=== PATIENT | male | born 1945 | race Caucasian/White ===

== ENCOUNTER 2020-12-02 16:25 | Inpatient (IN) | payer MEDICARE, OTHER ==
[~2020-12-02] VITALS: Ht 170.2 cm; Wt 72.6 kg
--- NOTE | 2020-12-02 16:25 | NUR ---
Pt is waiting in the hallway in [facility] as there are no ER beds available at this time.
[2020-12-02] MEDS ORDERED: INSULIN (16:53)
[2020-12-02] MEDS ORDERED: HEPARIN (16:53)
[2020-12-02] MEDS ORDERED: ALBUTEROL SULFATE 2.5 MG/3 ML NEBU NEB ONE (17:15)
[2020-12-02] MEDS ORDERED: ALBUTEROL SULFATE 2.5 MG/ 0.5 ML NEBU ONE (17:27)
[2020-12-02 17:41] LABS: HEMATOCRIT 27.1 % (36.7-47.1); MEAN CORPUSCULAR HEMOGLOBIN 29.9 uug (23.8-33.4); MEAN CORPUSCULAR VOLUME 93.4 fL (73.0-96.2); PLATELET COUNT (AUTO) 101 K/uL (152-348)
[2020-12-02 17:49] LABS: CARBON DIOXIDE 30 mmol/L (21-32); CHLORIDE 98 mmol/L (98-107); CREATININE 4.3 mg/dL (0.6-1.3); GLUCOSE 179 mg/dL (74-106); UREA NITROGEN, BLOOD 38 mg/dL (7-18)
[2020-12-02] MEDS ORDERED: NITROGLYCERIN 0.4 MG/TAB BOTTLE SL ONE ×2 (18:00→18:14)
[2020-12-02] MEDS ORDERED: FUROSEMIDE 40 MG/4 ML VIAL IV ONE (18:00)
[2020-12-02 18:02] LABS: ALANINE AMINOTRANSFERASE 21 U/L (16-63); ALKALINE PHOSPHATASE 141 U/L (50-136); ASPARTATE AMINOTRANSFERASE 21 U/L (15-37); BILIRUBIN,DIRECT 0.2 mg/dL (0.0-0.2); BILIRUBIN,TOTAL 0.6 mg/dL (0.2-1.0); TOTAL PROTEIN, SERUM 7.1 g/dL (6.4-8.2)
[2020-12-02] MEDS ORDERED: FUROSEMIDE 40 MG/4 ML VIAL ONE (18:14)
--- NOTE | 2020-12-02 18:43 | NUR ---
talked to pt's daughters Leisa and over the phone multiple times with the following discussion: pt is not a candidate for any surgery per pt's doctors. family is working for palliative care. pt is DNR. its ok to admit the pt here at [place]. , daughter [phone] fartun Díaz, [phone] Efrain, son in law, arson and bomb investigator: Dr. Zeng [phone] PMD: Dr. Anthony [phone]. Addendum: 12/02/20 at 4 by JELANI pt with following medical conditions: stage 4 cardiomyopathy, heart failure, renal failure, aortic malfunction, s/p aortic valve replacement 3 weeks ago at [facility], ever pt on dobutamin pump to support the bp x 2 weeks. pt recieves dialysis on ,sat.
[2020-12-02] MEDS ORDERED: INSULIN REGULAR, HUMAN 300 UNIT/3 ML VIAL IV ONE (19:00)
[2020-12-02] MEDS ORDERED: SODIUM POLYSTYRENE SULFONATE 15 G/60 ML LIQUID UDC PO ONE (19:00)
[2020-12-02] MEDS ORDERED: DEXTROSE 50% 50 ML DISP.SYRIN IV ONE (19:00)
[2020-12-02] MEDS ORDERED: DEXTROSE 50% 50 ML DISP.SYRIN ONE (19:12)
[2020-12-02] MEDS ORDERED: INSULIN REGULAR, HUMAN 300 UNIT/3 ML VIAL ONE (19:12)
[2020-12-02] MEDS ORDERED: DEXTROSE 50% 50 ML DISP.SYRIN IV PRN (19:15)
[2020-12-02] MEDS ORDERED: Z GUARD REMEDY PASTE 57 GM TUBE TOP PRN (19:15)
[2020-12-02] MEDS ORDERED: ONDANSETRON 4 MG/2 ML VIAL IV PRN (19:15)
[2020-12-02] MEDS ORDERED: MAGNESIUM HYDROXIDE 30 ML LIQUID UDC PO PRN (19:15)
[2020-12-02] MEDS ORDERED: ACETAMINOPHEN 325 MG TABLET PO PRN (19:15)
[2020-12-02] MEDS: BLOOD SUGAR DIAGNOSTIC 1 EACH STRIP VI SCH (21:00)
--- NOTE | 2020-12-02 23:50 | NUR ---
PATIENT TAKEN BY FROY COTE TO 3RD FLOOR ROOM 315.
[2020-12-03] VITALS (55 sets, daily range): BP systolic 116–159; BP diastolic 35–92
--- NOTE | 2020-12-03 00:30 | NUR ---
SBAR REPORT FROM [facility] NURSE . DX: CHF EXACERBATION,ACUTE RESPIRATORY FAILURE .PATIENT AAOX3,MAEX4 SLOW AND VERY WEAK. SOB NOTED UPON EXERTION ON NRM 15 LITERS ,SATURATION 100% AND RR 20. AT REST HIS FINE RR 18 TO 20 SATURATION 100%.PATIENT ORIENTED TO ROOM AND EQUIPMENT AND CALL LIGHT GIVEN ADVISED TO CALL FOR ASSISTANCE AND HELP.
--- NOTE | 2020-12-03 00:45 | NUR ---
ADMISSION ASSESSMENT DONE AND ASKED PATIENT ABOUT HIS CODE STATUS HE SAID HE WANTS EVERY DONE .HE SAID HE USED TO SMOKED BUT NOT ANY MORE .
--- NOTE | 2020-12-03 00:50 | NUR ---
CALLED [facility] SERV[facility] AND SPOKED WITH SERVICE AND CASING SOAKER IS JOSELINE .
--- NOTE | 2020-12-03 01:00 | NUR ---
SPOKED WITH EDUARDO TREVIZO AND INFORMED PATIENT IS NOW IN CCU INITIALLY ADMITTED FOR TELEMETRY C/O PATIENT WITH SELF OWN DEVICE PUMP WITH MEDICATION INFUSION (DOBUTAMINE DRIP) THE TELEMETRY FLOOR DONT HANDLE THIS KIND OF PATIENT .
--- NOTE | 2020-12-03 02:00 | NUR ---
PATIENT CALLED AND COMPLAINING OF SOB ,PATIENT VERY ANXIOUS AND SAYING I CANNOT BREATH , SATURATION 100% AND RR 18 TO 20.ADVISED PATIENT TO CALM DONE AND INFORMED HIM HIS SATURATION IS 100% ON NRM AT 15 LITERS . CALLED RESPIRATORY THERAPIST AND AUSCULTATED LUNGS ,LEFT SIDE DIMINISHED AND + FOR WHEEZING .REPOSITION PATIENT AND HOB UP .
--- NOTE | 2020-12-03 02:00 | NUR ---
PATIENT WITH RIGHT AV FISTULA -SHUNT FOR HD GOOD THRILL VIA PALPATION AND AND GOOD BRUIT VIA AUSCULTATION .RIGHT HAND AND FOREARM SWOLLEN +2 TO +3 EDEMA ,RIGHT UPPER CHEST POST OP SITE ALSO SWOLLEN .
--- NOTE | 2020-12-03 03:30 | NUR ---
PATIENT WITH OWN MACHINE (PUMP ) WITH DOBUTAMINE DRIP VIA THE LEFT UPPER ARM MIDLINE INFUSING AND PATENT .
--- NOTE | 2020-12-03 04:43 | NUR ---
DOCTOR MUSA CALLED ASKING IF THE PATIENT ALREADY HAD HIS HEMODIALYSIS .HE SAID HE SPOKED TO ER NURSE YESTERDAY TO CALL DIALYSIS NURSE AND HAVE THEM DIALYSIS PATIENT RIGHT AWAY ,INFORMED MD THAT THE ORDER IS ROUTINE AND ER NURSE DID NOT ENDORSED THAT HD NEEDED TO BE DONE RIGHT AWAY , PER NURSING CERTIFIED LOW VISION THERAPIST SHE ALREADY CALLED HEMODIALYSIS COMPANY AND INFORMED THEM , THEY ARE COMING THIS MORNING . PER MD TO CALL HEMODIALYSIS NOW AND HAVE TIME DIALYSIS THIS PATIENT.
--- NOTE | 2020-12-03 05:05 | NUR ---
PER MIDDLE STITCHER DIALYSIS ARE COMING AND AUTO DAMAGE APPRAISER ALSO COMING SINCE PATIENT IN BED 4 AND ITS FAR FORM THE SINK .
[2020-12-03] MEDS ORDERED: LORAZEPAM 1 MG TABLET PO ONE (05:30)
--- NOTE | 2020-12-03 05:30 | NUR ---
CALLED MEDICAL OFFICE SUPERVISOR JOSELINE C/O PATIENT REQUEST FOR ATIVAN , PER PATIENT IT HELP HIM SLEEP AND CALM HIM DOWN .
--- NOTE | 2020-12-03 05:43 | NUR ---
GIVEN ATIVAN DEEPTI PATIENT ABLE TO SWALLOW .TOLERATED PILL WITH WATER .WARM BLANKET PROVIDED AND EXTRA BLANKET .
--- NOTE | 2020-12-03 07:00 | NUR ---
patient signed consent for hemodialysis ,acute dialysis nurse at bedside .
[2020-12-03] MEDS: PANTOPRAZOLE SODIUM 40 MG TABLET.DR PO SCH (07:23)
--- NOTE | 2020-12-03 07:23 | NUR ---
speech therapist at bedside .patient passed swallow evaluation and as per speech therapist she will modify the diet .
[2020-12-03] MEDS: BLOOD SUGAR DIAGNOSTIC 1 EACH STRIP VI SCH ×4 (08:18→22:35)
[2020-12-03 08:25] LABS: HEMATOCRIT 25.1 % (36.7-47.1); MEAN CORPUSCULAR HEMOGLOBIN 29.9 uug (23.8-33.4); MEAN CORPUSCULAR VOLUME 91.5 fL (73.0-96.2); PLATELET COUNT (AUTO) 99 K/uL (152-348)
[2020-12-03 08:50] LABS: ALANINE AMINOTRANSFERASE 24 U/L (16-63); ALKALINE PHOSPHATASE 135 U/L (50-136); ASPARTATE AMINOTRANSFERASE 17 U/L (15-37); BILIRUBIN,DIRECT 0.2 mg/dL (0.0-0.2); BILIRUBIN,TOTAL 0.8 mg/dL (0.2-1.0); CARBON DIOXIDE 32 mmol/L (21-32); CHLORIDE 97 mmol/L (98-107); CREATININE 3.4 mg/dL (0.6-1.3); GLUCOSE 99 mg/dL (74-106); MAGNESIUM 2.2 mg/dL (1.8-2.4); PHOSPHOROUS 2.8 mg/dL (2.5-4.9); POTASSIUM 4.1 mmol/L (3.5-5.1); UREA NITROGEN, BLOOD 30 mg/dL (7-18)
[2020-12-03] MEDS ORDERED: IPRATROPIUM/ALBUTEROL SULFATE 14.7 GM INHALER INH SCH (09:15)
[2020-12-03] MEDS: ALBUTEROL SULFATE 2.5 MG/3 ML NEBU NEB PRN (09:34)
[2020-12-03] MEDS: IPRATROPIUM BROMIDE 0.5 MG/2.5 ML NEBU NEB PRN (09:34)
[2020-12-03 11:14] LABS: EOSINOPHILS % (MANUAL) 1 % (0-8); LYMPHOCYTES % (MANUAL) 5 % (20-40); MONOCYTES % (MANUAL) 5 % (2-10); NEUTROPHILS % (MANUAL) 89 % (42-75)
--- NOTE | 2020-12-03 11:26 | NUR ---
0730am: SBAR received from [facility]. 1st contact with patient: This patient is lethargic looking, with tachypnea & orthopnea, on 100%NRB mask, afebrile with DNR/DNI code status per previous RNs & ER doctor's notes. Dialysis nurses are@bedside. 0800am: Hemodialysis is in progress. Patient has his own dobutamine drip infusing from an outside hospital IV pump@4.5 ml per hour thru left arm single lumen PICC line. Patient came to CCU with this drip. 0826am: pulmonary doctor@ bedside 0852am: DEEP SUBMERGENCE VEHICLE OPERATOR Karson (nephrology consult)@bedside 0919am: Patient is tolerating the hemodialysis. He is resting in high fowlers position with eyes close. 0931am: nebulization treatment by respiratory therapist in progress, wheezes & crackles all over L>R 0939am: Utilities Manager@bedside. Dr Steve gave verbal order to continue patient's own dobutamine drip in patient's own IV pump. 1031am: Bedside ultrasound by molding fitter Alexis is in progress. 1058am: Patient is more alert and he is now eating breakfast with good appetite. When patient removes his mask to eat or drink, his SpO2 level goes down to 74%. Nasal cannula@6liters maintained while eating and drinking. With nasal cannula@6liters/min, his SpO2 levels are at 88%-90% 1151am:Patient is now sleeping on his right side. He remains calm & his respiration is easy.
[2020-12-03 11:49] LABS: CHOLESTEROL 108 mg/dL (<200); HDL CHOLESTEROL 47 mg/dL (40-60); TRIGLYCERIDES 33 MG/DL (30-150)
--- NOTE | 2020-12-03 16:34 | NUR ---
1226pm: bedside echocardiogram in progress. 1344pm: Patient is now resting comfortably on bed with eyes close, no shortness of breath seen, with SpO2 levels>97% with 10 liters by simple mask. 1350pm: Dr Steve called back and clarified the order to leave the current home dobutamine drip as is. The patient has his own IV medicine, tubing and pump from home. Patient is sleeping at this time. 1452pm: Patient ate lunch with good appetite, still has labored breathing with minimal exertion and patient speaks in phrases when awake. 1629pm: Patient is sleeping comfortably on his right side with head of bed at 40 degrees. He is seen moving on the bed on his own. Patient's daughter called earlier and said that she wants this patient on hospice care. CATALOG SPECIALIST Carrie Mccoy was notified. The daughter was told re: our hospital's disease case manager will contact her as soon as possible regarding her wish for hospice care.
[2020-12-03] MEDS: INSULIN REGULAR, HUMAN 300 UNIT/3 ML VIAL SQ PRN ×2 (16:35→22:38)
--- NOTE | 2020-12-03 18:12 | NUR ---
Patient is sleeping with respiration:easy@the moment. Comfort and safety measures maintained.
--- NOTE | 2020-12-03 18:33 | NUR ---
Patient is eating dinner and at the same time talking to his family thru his personal cellphone. Patient has dyspnea with minimal effort.
--- NOTE | 2020-12-03 19:30 | NUR ---
ROUNDS MADE PATIENT IN BED SLEEPING EASILY AROUSABLE ,OPEN EYES TO NAME AND ABLE TO REPOSITION SELF , PATIENT ON SIMPLE FACE MASK AT 10 LITERS ,TOLERATING OXYGEN NO SOB AT REST NOTED SOB ONLY UPON EXERTION ,SATURATION 100 % RR 20.DOBUTAMINE DRIP (PATIENTS OWN MACHINE ) INFUSING VIA THE LEFT PICCLINE PATENT .SR WITH PVCS ON THE HEART MONITOR RATE 67 TO 72. PATIENT DENIES CHEST PAIN WHEN ASKED , URINAL PLACED WITH IN REACH AND ADVISED TO CALL FOR HELP /ASSISTANCE ,CALL LIGHT PLACED WITH IN REACH .
--- NOTE | 2020-12-03 22:00 | NUR ---
f/s done and insulin sliding scale given .
--- NOTE | 2020-12-03 23:00 | NUR ---
turned and reposition patient ,patient able to help in turning . lotion applied to the back and upper and lower extremities . changed soiled linens and gown .given ice water .
--- NOTE | 2020-12-03 23:30 | NUR ---
patient requested for something to eat he said he likes chocolate ,given chocolate pudding and jello patient able to feed self . hob up .
[2020-12-04] VITALS (25 sets, daily range): BP systolic 107–174; BP diastolic 51–86
--- NOTE | 2020-12-04 | NUR ---
tolerating 02 simple mask at 10 liters saturation 100 % rr 18 to 20 , sob noted on exertion but when at rest no sob . hob up . extra blanket provided as patient requested . checked temperature 98.0 orally .
[2020-12-04] MEDS: LORAZEPAM 1 MG TABLET PO PRN (04:05)
--- NOTE | 2020-12-04 04:12 | NUR ---
PATIENT CALLED C/O SOB PATIENT WANTS THE NRM ,CHANGED SIMPLE MASK TO NRM VERY ANXIOUS RR IS 18 TO 20 SATURATION 100% CALLED EPIC SERVICE PATIENT IS REQUESTING ATIVAN HE SAID HE TAKES ATIVAN AT HOME PRN TO SLEEP AND ANXIETY .
--- NOTE | 2020-12-04 06:00 | NUR ---
due medication given and tolerated with water . changed soiled linens and gown. mepliex applied to sacral area.
[2020-12-04] MEDS: PANTOPRAZOLE SODIUM 40 MG TABLET.DR PO SCH (06:11)
[2020-12-04] MEDS: BLOOD SUGAR DIAGNOSTIC 1 EACH STRIP VI SCH ×4 (08:19→21:13)
[2020-12-04] MEDS: INSULIN REGULAR, HUMAN 300 UNIT/3 ML VIAL SQ PRN ×3 (08:20→16:31)
[2020-12-04] MEDS ORDERED: DOBUTamine IV 250 ML IV STA (08:34)
[2020-12-04] MEDS ORDERED: DOBUTamine IV 250 ML IV SCH (08:41)
--- NOTE | 2020-12-04 08:56 | NUR ---
PATIENT'S HOME PUMP WITH DOBUTAMINE GTT AT CONTINUOUS DOSE 1.25 MCG/KG/MIN HAS RUN OUT. CROWN ASSEMBLY MACHINE SET UP MECHANIC DR NORMAN NOTIFIED VIA PHONE AND HE ORDERED A DOBUTAMINE GTT TO RUN AT THE SAME DOSE ON OUR CCU PUMP. PT TOLERATING NC AT 6L/MIN WITH O2 SAT 98-100%, PT FEELS SOA AND KEEPS ASKING WHEN DIALYSIS IS COMING. BP WITH DOBUTAMINE OFF IS 134/64. PHARMACY NOTIFIED TO SEND DOBUTAMINE GTT STAT.
--- NOTE | 2020-12-04 09:15 | NUR ---
Received report from Reg. Phyllis Euceda. Patient AAOx3. vitals stable on NC 6Liters with saturation of 98-100% no respiratory distress. Cardiac-reno pt just restarted on dobutamine at 1.2mcg/kg/min.
--- NOTE | 2020-12-04 09:30 | NUR ---
Hemodialysis team in the unit and Pt. on HD process. Tolerating well.
[2020-12-04] MEDS: diphenhydrAMINE 50 MG/1 ML VIAL IV PRN (09:34)
[2020-12-04 09:40] LABS: CARBON DIOXIDE 30 mmol/L (21-32); CHLORIDE 96 mmol/L (98-107); CREATININE 4.3 mg/dL (0.6-1.3); GLUCOSE 184 mg/dL (74-106); POTASSIUM 4.9 mmol/L (3.5-5.1); UREA NITROGEN, BLOOD 33 mg/dL (7-18)
[2020-12-04 09:44] LABS: MAGNESIUM 2.1 mg/dL (1.8-2.4); PHOSPHOROUS 3.7 mg/dL (2.5-4.9)
--- NOTE | 2020-12-04 09:44 | NUR ---
SPOKE WITH NAIL GALVANIZER EMMANUEL HANANH REGARDING PT C/O SEVERE ITCHING AND HAS SCABS FROM SCRATCHING SO MUCH. ORDER RECEIVED FOR BENADRYL 25MG. DIALYSIS NOW AT BEDSIDE AND STARTING HD.
[2020-12-04 09:46] LABS: HEMATOCRIT 24.8 % (36.7-47.1); MEAN CORPUSCULAR HEMOGLOBIN 29.9 uug (23.8-33.4); MEAN CORPUSCULAR VOLUME 91.7 fL (73.0-96.2); PLATELET COUNT (AUTO) 104 K/uL (152-348)
--- NOTE | 2020-12-04 13:17 | NUR ---
Hemodialysis finished at this time report of 2liters removed. Patient tolerated procedure well. Hr of 82, sbp of 154/67.
--- NOTE | 2020-12-04 14:49 | NUR ---
Pt. uneasy and with c/of feeling hungry. Kitchen call for a snack.
--- NOTE | 2020-12-04 14:57 | NUR ---
Attending Koko Mccoy,. in the unit to follow up on pt. At this time she and pt. discussed care plan.
--- NOTE | 2020-12-04 18:02 | NUR ---
Patient on bed resting comfortable, with no c/of pain or any other discomfort. Cardiac-reno remains on dobutamine drip running at 1.2mcg/kg/min. heart in the 70's 80's. Sr. Respiratory reno pt. on Nasal Canula at 5L with saturation of 96-99%. no sob noted or reported by pt. Patient tolerating his diet well eating independently with no s/s of aspiration. Tolerated hemodialysis well this am with a total of 2L out, with no urine output for the shift. IV access patent. No injury sustained, No pressure sores pt. moving independently in bed. Will endorse care plan to incoming shift.
--- NOTE | 2020-12-04 19:00 | NUR ---
Received patient in bed resting well. Patient is A/Ox3 very sweet gentleman. patient is SR on the monitor, 6L NC SAT 98%. Patient not complaining of any pain at this time. no SOB or signs of distress. Patient has an area of marked edema on the right upper chest area that appears red and irritated, ultrasound shows an complicated fluid collection. Patient has been expressing concern about this.
[2020-12-05] VITALS (25 sets, daily range): BP systolic 105–189; BP diastolic 42–80
[2020-12-05 05:22] LABS: HEMATOCRIT 24.7 % (36.7-47.1); MEAN CORPUSCULAR VOLUME 91.4 fL (73.0-96.2); PLATELET COUNT (AUTO) 106 K/uL (152-348)
[2020-12-05 05:29] LABS: CARBON DIOXIDE 32 mmol/L (21-32); CHLORIDE 102 mmol/L (98-107); CREATININE 3.8 mg/dL (0.6-1.3); GLUCOSE 138 mg/dL (74-106); POTASSIUM 4.4 mmol/L (3.5-5.1); UREA NITROGEN, BLOOD 25 mg/dL (7-18)
[2020-12-05] MEDS: PANTOPRAZOLE SODIUM 40 MG TABLET.DR PO SCH (06:59)
[2020-12-05] MEDS: BLOOD SUGAR DIAGNOSTIC 1 EACH STRIP VI SCH ×4 (07:56→21:15)
--- NOTE | 2020-12-05 08:04 | NUR ---
Received pt. in bed resting comfortably no c/of any distress. Remains on dobutamine SBP above 160's and as reported pt. is been above 150's. On NC 5L with saturation above 97%. with no sob, or tachypnea. AAOX4. IV line patent. Will continue with care plan.
--- NOTE | 2020-12-05 08:07 | NUR ---
[address] Steve informed of pt's SBP been above 160's. Awaiting call back.
[2020-12-05] MEDS ORDERED: hydrALAZINE HCL 20 MG/1 ML VIAL IV PRN (08:15)
--- NOTE | 2020-12-05 08:16 | NUR ---
A call back from Dr. Steve and orders for losartan 50mg daily and hydralazine 10mg IVP prn Q4 for sbp above 160's.
--- NOTE | 2020-12-05 08:35 | NUR ---
Patient with c/of been short of breath, breathing treatment given and medicated with ativan as requested by pt.
[2020-12-05] MEDS: LORAZEPAM 1 MG TABLET PO PRN ×2 (08:38→19:22)
[2020-12-05] MEDS: LOSARTAN POTASSIUM 50 MG TABLET PO SCH (08:38)
[2020-12-05] MEDS: IPRATROPIUM BROMIDE 0.5 MG/2.5 ML NEBU NEB PRN (08:39)
[2020-12-05] MEDS: ALBUTEROL SULFATE 2.5 MG/3 ML NEBU NEB PRN (08:39)
[2020-12-05 08:43] LABS: BILIRUBIN,DIRECT 0.2 mg/dL (0.0-0.2); BILIRUBIN,TOTAL 0.5 mg/dL (0.2-1.0); TOTAL PROTEIN, SERUM 6.4 g/dL (6.4-8.2)
--- NOTE | 2020-12-05 08:59 | NUR ---
Both metal machinist Dr. Steve and Dr. Rivera from pulmonary services, in the unit to see and examine pt. At this time pt. remains short of breath. and both Dr.'s discussed the possibility of pleurex. and drainage of right chest abscess at old HD catheter access.
--- NOTE | 2020-12-05 09:03 | NUR ---
Dr. Woo surgeon in to examine pt. updated by Dr. Steve.
[2020-12-05] MEDS ORDERED: LIDOCAINE 1%-EPI 1:100,000 20 ML VIAL IJ ONE (09:15)
[2020-12-05] MEDS ORDERED: BUPIVACAINE 0.25% 30 ML VIAL INJ PRN (09:15)
--- NOTE | 2020-12-05 09:19 | NUR ---
Dr. Woo at bedside for I&D.
--- NOTE | 2020-12-05 09:35 | NUR ---
I&D procedure finished at this time as reported by Dr. Chilo couchess was full of fluid, area left covered with dry dressing. Orders for dry dressing prn received. Will continue to monitor for possible bleeding.
--- NOTE | 2020-12-05 10:08 | NUR ---
Attending physician Dr. Velasco in the unit to see and examine pt. report given. Orders to check albumin level received and to give 25 grams 25% albumin if level is below 2.5 post thoracentesis.
--- NOTE | 2020-12-05 10:45 | NUR ---
HD team in the unit and at this time HD procedure started. Patient tolerating well.
[2020-12-05] MEDS: DOBUTamine IV 250 ML IV SCH (12:48)
--- NOTE | 2020-12-05 14:30 | NUR ---
Hemodialysis finished at this time and as reported. 2liter of fluids removed. Pt. tolerated procedure fairly.
--- NOTE | 2020-12-05 15:14 | NUR ---
Hugo kelsey at [facility]. Pt in no distress, [facility] said ok to do thoracentesis tmw in AM with Dr Rosales.
--- NOTE | 2020-12-05 16:45 | NUR ---
Patient unable to get HD finalized catheter clotted informed by MARIELENA Ferguson Addendum: 12/05/20 at 1829 by LION SIMMS RN the above note was intended for another pt.
[2020-12-05] MEDS: INSULIN REGULAR, HUMAN 300 UNIT/3 ML VIAL SQ PRN ×2 (17:48→21:16)
--- NOTE | 2020-12-05 19:05 | NUR ---
Received patient in bed resting well. Patient is A/Ox3 very sweet gentleman. Patient is SR on the monitor, currently on 15L non-rebreather mask SAT 100%. Patient complaining of pain from recent procedure to drain the fluid collection on his right upper chest. Currently wound has a dry dressing placed over the incision, dressing appears to be saturated with serosanguineous fluid. Previous nurse says dressing changes are frequent as the dressings saturate quickly. No SOB or signs of distress. Patient was supposed to have an US guided thoracentesis, however this has been pushed back until tomorrow. YARITZA PICC remains patent, running Dobutamine @1.25mcg/kg/min. No urine output during the past 12 hours.
--- NOTE | 2020-12-05 19:30 | NUR ---
Changed wound dressing on right upper chest as old dressing completely saturated with serosanguineous fluid. Packing placed by the surgeon left in place as there is no order to remove and replace this. No odor or purulent drainage noted. Patient tolerated dressing change well.
--- NOTE | 2020-12-05 19:52 | NUR ---
Spoke with the eldest daughter . I gave her an update on her fathers condition, the status of the I&D for his fluid collection on the upper right chest, and the plan for US guided thoracentesis tomorrow. She stated that she is getting the paperwork completed to make him a DNR. I also discussed with her the recommendations from Pulmonology in regard to the plan of care for his pleural effusions. Pulmonology wishes to discuss PleurX catheter vs serial thoracentesis in regards to his future care. informed me they are going to be leaning toward palliative care and for sure want to continue with the US guided thoracentesis for now, but don't think they want to pursue a PleurX catheter at this time. She requested that Dr. Rivera contact her directly to discuss their decisions and plan of care.
[2020-12-05] MEDS: diphenhydrAMINE 50 MG/1 ML VIAL IV PRN (21:17)
[2020-12-06] VITALS (24 sets, daily range): BP systolic 82–135; BP diastolic 45–75
[2020-12-06 05:15] LABS: MEAN CORPUSCULAR HEMOGLOBIN 29.7 uug (23.8-33.4); MEAN CORPUSCULAR VOLUME 91.2 fL (73.0-96.2); PLATELET COUNT (AUTO) 105 K/uL (152-348)
[2020-12-06 05:37] LABS: ALANINE AMINOTRANSFERASE 11 U/L (16-63); ALKALINE PHOSPHATASE 110 U/L (50-136); ASPARTATE AMINOTRANSFERASE 14 U/L (15-37); BILIRUBIN,TOTAL 0.6 mg/dL (0.2-1.0); CARBON DIOXIDE 33 mmol/L (21-32); CHLORIDE 99 mmol/L (98-107); CREATININE 3.5 mg/dL (0.6-1.3); GLUCOSE 115 mg/dL (74-106); POTASSIUM 4.4 mmol/L (3.5-5.1); TOTAL PROTEIN, SERUM 6.4 g/dL (6.4-8.2); UREA NITROGEN, BLOOD 19 mg/dL (7-18)
[2020-12-06] MEDS: PANTOPRAZOLE SODIUM 40 MG TABLET.DR PO SCH (07:04)
[2020-12-06] MEDS: BLOOD SUGAR DIAGNOSTIC 1 EACH STRIP VI SCH ×4 (07:08→20:47)
--- NOTE | 2020-12-06 07:19 | NUR ---
Received patient sleeping intermittently . Patient is A/Ox3 very sweet gentleman. patient is SR on the monitor with sbp within desired limits see VS spread sheet. Respiratory: on NR 15Liters with saturation of 100%. Patient not complaining of any pain at this time. no SOB or signs of distress. IV line patent. Dressing to right chest area of I&D with dressing c.d.i. will continue to monitor.
--- NOTE | 2020-12-06 07:35 | NUR ---
Wildland Fire Operations Specialist Dr. Vee in the unit to see and examine pt. report given and orders to continue with care plan received.
--- NOTE | 2020-12-06 08:00 | NUR ---
Carton Lettering Machine Operator Dr. Steve in the unit to see and examine pt. post report orders to continue with care plan received.
[2020-12-06] MEDS: LOSARTAN POTASSIUM 50 MG TABLET PO SCH (08:19)
--- NOTE | 2020-12-06 09:30 | NUR ---
Pulmonary services, Dr. Rivera in the unit to see and examine pt. present during left lung thoracentesis. Report given see order hx.
--- NOTE | 2020-12-06 09:32 | NUR ---
Patient undergoing thoracentesis. Dr. Nicole and Alexis Us tech at bedside. pt tolerating well.
--- NOTE | 2020-12-06 09:34 | NUR ---
HR of 84 sbp 134/64, 100% saturation rr 25. thoracentesis in progress.
--- NOTE | 2020-12-06 09:42 | NUR ---
Thoracentesis completed at this time pt. tolerated well Hr of 80, sbp of 134/64, rr 15. Stat chest X-ray ordered by and called. Reports of a total of 1500cc yellowish fluid obtained and syringe sent for pathology as ordered.
--- NOTE | 2020-12-06 11:20 | NUR ---
A call from pt's daughter Ms. Estrada with cell phone number [phone] and at this time Ms. Estrada stated the need to have attending to call her with an update of her father's care plan. She also requested to speak with case- budget manager construction tech to discussed dcd plan. After hanging with her a call to attending Dr. Suazo to inform him of Ms. Estrada's request Dr. little with cell phone number. aSrah clinical case manager's was also called and message left informing her of Ms. Estrada's request to speak to her.
[2020-12-06] MEDS: INSULIN REGULAR, HUMAN 300 UNIT/3 ML VIAL SQ PRN ×3 (12:27→20:48)
--- NOTE | 2020-12-06 17:25 | NUR ---
Attending physician Gabriele Cardenas in the unit to see and examine pt. report given and at this time discussed care plan with pt.
--- NOTE | 2020-12-06 17:40 | NUR ---
Left patient in bed sleeping on/off. Patient is AAOx4 and compliant with nursing care. Cardiac-reno on sinus rhythm and remains on dobutamine drip running at 1.2mcg/kg/min for cardiac function. SBP within normal. Respiratory-reno pt. remains on NC 6L with saturation of 98-100% pt with a couple of episodes of feeling short of breath without desaturation. Tolerated left lung thoracentesis well with a 1.6 clear yellow output from which a syringe got sent for pathology. Surgical incision to BEN. oozing serous sanguinous in small amount, no sins of infection. Pt. Tolerating diet well with no n/v/d. Using urinal with a total of 150cc dark urine. Will endorse to incoming shift for continuity of care plan.
--- NOTE | 2020-12-06 19:05 | NUR ---
received patient awake , oriented , able to follow command , on 5l nc , assisted to the commode , no sob noted , denies pain at this time , dobutamine 1.25 mcg running , av shunt bruit and thrill felt on the right arm , dressing on the right upper chest , IV intact ,
--- NOTE | 2020-12-06 22:00 | NUR ---
alternates between nrb and 5l nc per patient's request even though rr is wnl and oxygen saturation is always above 96 %
[2020-12-07] VITALS (25 sets, daily range): BP systolic 77–168; BP diastolic 32–91
--- NOTE | 2020-12-07 01:41 | NUR ---
* Performs deep breathing and coughing * Exhibits no adventitious breath sounds * Maintains adequate ventilation Addendum: 12/07/20 at 0142 by CALI NAJERA RN Amended: Aishwarya added. Addendum: 12/07/20 at 0143 sivakumar NAJERA RN Amended: Aishwarya added.
--- NOTE | 2020-12-07 03:00 | NUR ---
fed apple sauce and two jello per patient's request , ate 100 % , no back to sleep soundly , easily arousable
[2020-12-07 05:01] LABS: HEMATOCRIT 23.5 % (36.7-47.1); MEAN CORPUSCULAR HEMOGLOBIN 29.6 uug (23.8-33.4); MEAN CORPUSCULAR VOLUME 91.1 fL (73.0-96.2); PLATELET COUNT (AUTO) 87 K/uL (152-348)
[2020-12-07 05:07] LABS: CARBON DIOXIDE 30 mmol/L (21-32); CHLORIDE 101 mmol/L (98-107); CREATININE 4.8 mg/dL (0.6-1.3); GLUCOSE 227 mg/dL (74-106); MAGNESIUM 1.9 mg/dL (1.8-2.4); PHOSPHOROUS 2.7 mg/dL (2.5-4.9); POTASSIUM 4.9 mmol/L (3.5-5.1); UREA NITROGEN, BLOOD 29 mg/dL (7-18)
[2020-12-07 05:12] LABS: NEUTROPHILS % (MANUAL) 0 % (42-75)
--- NOTE | 2020-12-07 05:41 | NUR ---
dr wiley is here to patient , cxr done , sleeping , easily arousable , dobutamine running at 1.25 mcg iv intact on 5l nc
--- NOTE | 2020-12-07 06:00 | NUR ---
denies distress , sob , skin is dry , but no itching noted , right upper chest dresisng changed packed with iodorform , covered with non adhesive dressing and abd
[2020-12-07] MEDS: PANTOPRAZOLE SODIUM 40 MG TABLET.DR PO SCH (06:37)
[2020-12-07] MEDS: BLOOD SUGAR DIAGNOSTIC 1 EACH STRIP VI SCH ×4 (06:44→20:39)
[2020-12-07 07:40] LABS: ABG BASE EXCESS 8.8 mmol/L; ABG HCO3 33.8 mmol/L; ABG PCO2 49.7 mmHg (35.0-45.0); ABG PO2 113.5 mmHg (75.0-100.0); ABG SITE LEFT RADIAL; ABG TOTAL HEMOGLOBIN 8.4 G/dL (13.5-18.0); COHb 1.4 % (0.5-1.5); MetHb 0.1 % (0.0-1.5); O2Hb 97.1 % (94.0-97.0); VENT MODE Nasal Cannula
--- NOTE | 2020-12-07 08:00 | NUR ---
Patient seen by clinic specialist Dr. Steve, and at this time oxygen lowered to 3L by patient with saturation of 96-97%, tolerating it well.
[2020-12-07] MEDS: LOSARTAN POTASSIUM 50 MG TABLET PO SCH (08:12)
[2020-12-07] MEDS ORDERED: LOSARTAN POTASSIUM 50 MG TABLET PO SCH (09:00)
--- NOTE | 2020-12-07 09:31 | NUR ---
Received pt in bed sleeping, arousable to verbal stimuli AAOx3 and compliant with nursing care. Cardiac-reno on sinus rhythm and remains on dobutamine drip running at 1.2mcg/kg/min. SBP within desired limits. Respiratory-reno pt. remains on NC 6L with saturation of 98-100% no sob or any other discomfort. Surgical incision to BEN. oozing serous sanguinous in small amount, no sins of infection. Pt. Tolerating diet well with no n/v/d. U. Will continue with care plan
--- NOTE | 2020-12-07 09:41 | NUR ---
pulmonary services, Dr. Rivera int he unit to examine pt. report given see order hx.
--- NOTE | 2020-12-07 10:07 | NUR ---
ABG DONE ON 5lpm NASAL CANULA. PER RESULTS FIO2 TITRATED DOWN TO 3lpm NASAL CANULA. PT SPO2 MAINTAINING WITHIN NORMAL LIMITS. PT COMFORTABLE WITHOUT DISTRESS
--- NOTE | 2020-12-07 10:24 | NUR ---
A call to Dr. Woo to remind him to follow up on surgical wound RUchest s/p I&D. 12/05/20. Orders for wound consult received. In the mean time orders to pack wound with iodoform, and cover it with abdominal band until new recommendations received from wound care nurse.
--- NOTE | 2020-12-07 11:13 | NUR ---
Wound care Nurse Lenore in to see patient, Dressing change done by her and Dr. Woo called for follow up and possible consultation with Dr. Castellon. As stated by Md. He'll follow up on pt. within the next 10 days. and agreed to dressing changes ordered by Ms. Grover wound care R.N
[2020-12-07] MEDS: MINERAL OIL/PETROLATUM,WHITE 57 GM TUBE TOP SCH (11:15)
--- NOTE | 2020-12-07 11:16 | NUR ---
WOUND CARE CONSULT: PT PRESENTS WITH RT CHEST SURGICAL WOUND. NO ERYTHEMA OR ODOR NOTED. MODERATE TO LARGE AMOUNT OF PINK DRAINAGE NOTED. WOUND CARE AND SKIN PROTECTION RECOMMENDATIONS DISCUSSED WITH NURSING STAFF AND WITH DR ARCE. NEW ORDERS RECEIVED. SACRAL SCARRING NOTED. RECOMMEND SURGICAL FOLLOW UP. IN AGREEMENT WITH PLAN OF CARE. Addendum: 12/07/20 at 1118 by OMID CHANEY RN Amended: Links added.
[2020-12-07] MEDS: INSULIN REGULAR, HUMAN 300 UNIT/3 ML VIAL SQ PRN ×2 (11:45→20:50)
--- NOTE | 2020-12-07 12:50 | NUR ---
HD R.N. in the unit to dialyzed pt. baseline SBP 119/39 HR of 68 100% saturation on 3LNC. Will continue to monitor.
--- NOTE | 2020-12-07 12:55 | NUR ---
from this time sbp drop significantly and when inquire to HD R.N. if support for sbp needed. The response was "just let me do my job this is my pt." nursing water service supervisor in the unit. endorse to call Md if orders need it for SBP support.
--- NOTE | 2020-12-07 14:05 | NUR ---
At this time back from lunch pt. still undergoing HD Hr of 69, sbp of 87/43 100% on 3LNC. HD rn stating that He's communicating with MD. a Call to outsole scheduler Dr. Steve.
--- NOTE | 2020-12-07 14:17 | NUR ---
A call back from Dr. Steve report given and Dr. Castellanos with sbp in the 80's 90's as long as pt remains fully awake. HD rn informed.
[2020-12-07] MEDS: diphenhydrAMINE 50 MG/1 ML VIAL IV PRN (15:44)
--- NOTE | 2020-12-07 18:32 | NUR ---
Attending physician Dr. Suazo in the unit to see patient, report given no new orders received.
--- NOTE | 2020-12-07 18:36 | NUR ---
Left pt in bed sleeping intermittently, AAOx3 and compliant with nursing care. Cardiac-reno on sinus rhythm and remains on dobutamine drip running at 1.2mcg/kg/min. SBP within desired limits. PT underwent hemodialysis this afternoon tolerated poorly with sbp in the 80's 90's but asymptomatic, out-put of 10cc reported. Respiratory-reno pt. on NC 3L with saturation of 98-100% no sob or any other discomfort. Surgical incision to BEN. oozing serous sanguinous in small amount, no sins of infection. Pt. Tolerating diet well with no n/v/d. U. Will continue with care plan
--- NOTE | 2020-12-07 19:00 | NUR ---
no itching noted , generalized scattered discoloration on the body with scratches
--- NOTE | 2020-12-07 19:00 | NUR ---
received patient sleeping , easily arousable , on 3l nc , av shunt right upper arm bruits and thrill present , dobutamine at 1.25 mcg running on left upper arm picc line , continent , denies distress, right chest dressing with small drainage .
[2020-12-07] MEDS: DOBUTamine IV 250 ML IV SCH (19:39)
[2020-12-07] MEDS: IPRATROPIUM BROMIDE 0.5 MG/2.5 ML NEBU NEB PRN (19:39)
[2020-12-07] MEDS: ALBUTEROL SULFATE 2.5 MG/3 ML NEBU NEB PRN (19:39)
[2020-12-07] MEDS: LORAZEPAM 1 MG TABLET PO PRN (21:02)
[2020-12-07] MEDS: MORPHINE SULFATE 2 MG/1 ML DISP.SYRIN IV PRN (21:03)
[2020-12-08] VITALS (24 sets, daily range): BP systolic 78–145; BP diastolic 25–75
[2020-12-08] MEDS: PANTOPRAZOLE SODIUM 40 MG TABLET.DR PO SCH (06:28)
[2020-12-08] MEDS: BLOOD SUGAR DIAGNOSTIC 1 EACH STRIP VI SCH ×4 (06:50→20:59)
[2020-12-08] MEDS: MINERAL OIL/PETROLATUM,WHITE 57 GM TUBE TOP SCH (07:49)
[2020-12-08] MEDS ORDERED: LOSARTAN POTASSIUM 25 MG TABLET PO SCH (09:00)
[2020-12-08] MEDS: INSULIN REGULAR, HUMAN 300 UNIT/3 ML VIAL SQ PRN ×3 (09:15→21:00)
[2020-12-08] MEDS: diphenhydrAMINE 50 MG/1 ML VIAL IV PRN (10:47)
--- NOTE | 2020-12-08 11:00 | NUR ---
Patient Desaturates to 85% on room air trial. Resumed oxygen at 3L per [place].
[2020-12-08] MEDS: MORPHINE SULFATE 2 MG/1 ML DISP.SYRIN IV PRN (16:34)
[2020-12-08] MEDS ORDERED: MIDODRINE HCL 5 MG TABLET PO PRN (19:15)
[2020-12-09] VITALS (18 sets, daily range): BP systolic 102–141; BP diastolic 49–79
[2020-12-09] MEDS: IPRATROPIUM BROMIDE 0.5 MG/2.5 ML NEBU NEB PRN (03:31)
[2020-12-09] MEDS: ALBUTEROL SULFATE 2.5 MG/3 ML NEBU NEB PRN (03:32)
[2020-12-09 05:16] LABS: HEMATOCRIT 26.6 % (36.7-47.1); MEAN CORPUSCULAR HEMOGLOBIN 29.5 uug (23.8-33.4); MEAN CORPUSCULAR VOLUME 90.7 fL (73.0-96.2); PLATELET COUNT (AUTO) 111 K/uL (152-348)
[2020-12-09 05:25] LABS: CARBON DIOXIDE 29 mmol/L (21-32); CHLORIDE 96 mmol/L (98-107); CREATININE 4.6 mg/dL (0.6-1.3); GLUCOSE 112 mg/dL (74-106); MAGNESIUM 2.1 mg/dL (1.8-2.4); PHOSPHOROUS 3.1 mg/dL (2.5-4.9); POTASSIUM 5.2 mmol/L (3.5-5.1); UREA NITROGEN, BLOOD 29 mg/dL (7-18)
[2020-12-09] MEDS ORDERED: EPOETIN ALFA 10,000 UNITS/ML VIAL SQ ONE (06:00)
[2020-12-09] MEDS: PANTOPRAZOLE SODIUM 40 MG TABLET.DR PO SCH (07:06)
[2020-12-09] MEDS: BLOOD SUGAR DIAGNOSTIC 1 EACH STRIP VI SCH (07:52)
[2020-12-09] MEDS: MINERAL OIL/PETROLATUM,WHITE 57 GM TUBE TOP SCH (08:53)
--- NOTE | 2020-12-09 09:42 | NUR ---
sheet metal work furnace installer at bedside at this time
--- NOTE | 2020-12-09 10:00 | NUR ---
Spoke with casework specialist Stephenie regarding patient's Dobutamine pump refill and patient needs it refilled prior to leaving the hospital. LARON Casiano will call back after speaking with [facility].
[2020-12-09] MEDS ORDERED: ALBU2.5V7 NEB (11:53)
[2020-12-09] MEDS ORDERED: HYDR-4209 PO (11:53)
[2020-12-09] MEDS ORDERED: ALPR0.5T8 PO (11:53)
--- NOTE | 2020-12-09 12:30 | NUR ---
Patient preferred pharmacy information obtained from patient and inputted in the system. Patient scheduled to be discharged later today.
[2020-12-09] MEDS ORDERED: EPOETIN ALFA-EPBX 10,000 UNIT/ML VIAL SQ ONE (13:00)
--- NOTE | 2020-12-09 13:00 | NUR ---
Patient able to tolerate hemodialysis. Total output 2500. No s/s of distress or SOB noted. Assisted patient with lunch after dialysis.
--- NOTE | 2020-12-09 17:09 | NUR ---
Spoke with LARON Casiano. Patient will not be able to discharge today. Per patient's Home health pharmacy, an RN from their company has to be the one to refill patient's dobutamine cartridge to go home with. Earliest they will be able to do it is tomorrow morning. Will endorse to oncoming shift.
--- NOTE | 2020-12-09 18:12 | NUR ---
Informed patient of delay of discharge. Patient very upset and states "I don't care about the medication. I'm going home tonight. I don't care if I ." Afterwards, spoke with daughter Leisa, she states that patient still has two bags of dobutamine at home and that they can change the medication for him. Patient to be picked up tonight at 8pm. MD aware as well.
--- NOTE | 2020-12-09 19:00 | NUR ---
Patient refused discharge photo of right chest incision and states "I just want you to change it so I can go home. No more photos." Soiled dressing changed at this time.
--- NOTE | 2020-12-09 19:32 | NUR ---
Went over discharge instructions with patient and daughter on the phone. Both verbalized understanding. Discharge paperwork signed. Belongings lists signed and belongings with patient. Endorsed to PM data modeling specialist plan.
--- NOTE | 2020-12-09 19:45 | NUR ---
DC home per wheelchair, NAD noted. All belongings with patient including Dobutamine drip pump and oxygen upon discharge. Picked up by daughter.
== END 2020-12-09 19:45 | disposition home or self-care (01) | DRG 291 ==
LOC: ER 16:25 → TELE3 23:42 → CCU 12-03 00:09
PROVIDERS: ADMIT Nurse Practitioner Acute Care; ATTEND Internal Medicine
PROC: 5A1D70Z Performance of Urinary Filtration, Intermittent, Less than 6 Hours Per Day (ICD-10-PCS; 2020-12-02)
PROC: 0W983ZZ Drainage of Chest Wall, Percutaneous Approach (ICD-10-PCS; principal; 2020-12-05)
PROC: 0W9B3ZZ Drainage of Left Pleural Cavity, Percutaneous Approach (ICD-10-PCS; 2020-12-06)
DX: I13.2 Hypertensive heart and chronic kidney disease with heart failure and with stage 5 chronic kidney disease, or end stage renal disease (principal); I50.43 Acute on chronic combined systolic (congestive) and diastolic (congestive) heart failure; J96.21 Acute and chronic respiratory failure with hypoxia; N18.6 End stage renal disease; R57.0 Cardiogenic shock; J18.9 Pneumonia, unspecified organism; D68.59 Other primary thrombophilia; J98.11 Atelectasis; E44.0 Moderate protein-calorie malnutrition; J44.0 Chronic obstructive pulmonary disease with (acute) lower respiratory infection; L02.213 Cutaneous abscess of chest wall; J91.8 Pleural effusion in other conditions classified elsewhere; I25.5 Ischemic cardiomyopathy; D69.6 Thrombocytopenia, unspecified; Z87.891 Personal history of nicotine dependence; Z95.2 Presence of prosthetic heart valve; Z99.2 Dependence on renal dialysis; E11.22 Type 2 diabetes mellitus with diabetic chronic kidney disease; D63.8 Anemia in other chronic diseases classified elsewhere; E66.01 Morbid (severe) obesity due to excess calories; J44.9 Chronic obstructive pulmonary disease, unspecified; I35.0 Nonrheumatic aortic (valve) stenosis; E87.5 Hyperkalemia; Z74.09 Other reduced mobility; E88.09 Other disorders of plasma-protein metabolism, not elsewhere classified; Z68.25 Body mass index [BMI] 25.0-25.9, adult; Z20.822 Contact with and (suspected) exposure to COVID-19
CPT/HCPCS: 32555; 36415; 36600; 70030-TC; 71045; 76604; 76881; 83605; 83615; 83735; 83986; 84100; 84155; 85025; 85730; 86803; 87040; 87070; 87075; 87205; 87806; 90937; 93005; 93307; 94640; A4663; A6209; G0378; J0360; J0885; J1200; J1815; J1940; J2270; J3490; J3590; J7030